=== PATIENT | female | born 1975 | race Caucasian/White ===

== ENCOUNTER 2023-03-19 13:27 | Outpatient (CLI) | payer OTHER, SELFPAY ==
--- NOTE | ~2023-03-19 | XR_ITS ---
EXAMINATION: XR fl inj shoulder LT - MR/CT DATE: 03/19/2023 14:38 INDICATION: Chronic left shoulder pain TECHNIQUE: A time-out was performed to verify the patient's name, date of , and procedure to b e performed. The procedure including the risks, benefits, and alternatives was discussed with the pat ient. Risks discussed included bleeding and infection. The patient understood the risks and agreed to proceed. The skin overlying the rotator cuff interval of the left glenohumeral joint was prepped an d draped in usual sterile fashion. Anesthetic was administered with 1% lidocaine subcutaneously. A 22 G needle was advanced under fluoroscopic guidance into the joint. Injection of 1 mL of Omnipaque 240 confirmed intra-articular position of the needle. Subsequently, injectate consisting of 12 mL of 2:1:1 mixture of sterile saline:Omnipaque 240:1% lidocaine mixed 200:1 with 529 mg/mL Multihance brenda olinium contrast was injected. Washout of contrast was seen confirming intra-articular administration . The needle was removed and the entry site was cleaned and dressed. There were no immediate complic ations. Fluoroscopy exposure time was 0.2 minutes. The total number of images was 6. FINDINGS: Real-time fluoroscopy demonstrates the needle and contrast in the left glenohumeral joint. IMPRESSION: 1. Successful left glenohumeral joint injection of dilute gadolinium contrast mixture for subsequent MRI arthrogram which will be dictated separately. Reviewed, dictated and finalized at location A. IMPRESSION: 1. Successful left glenohumeral joint injection of dilute gadolinium contrast m ixture for subsequent MRI arthrogram which will be dictated separately.
--- NOTE | ~2023-03-19 | MR_ITS ---
EXAMINATION: MR shoulder LT w con DATE: 03/19/2023 15:27 INDICATION: Chronic left shoulder pain TECHNIQUE: Magnetic resonance imaging (MRI) of the left shoulder was performed following intra-artic ular gadolinium contrast injection and without intravenous contrast. Details of the glenohumeral join t injection have been dictated separately. Sequences included axial T2-weighted FS FSE, axial T1-rosalia ghted FS FSE, coronal oblique T1-weighted FS FSE, coronal oblique T2-weighted FSE, sagittal T2-weight ed FS FSE, sagittal T1-weighted FSE, and ABER (abduction external rotation) T1-weighted FS FSE. COMPARISON: None. FINDINGS: Coracoacromial arch: The acromion undersurface is minimally curved in morphology (type I-II). The coracoacromial ligament is normal. Acromioclavicular joint is normal. Rotator cuff: The supraspinatus, infraspinatus and teres minor are normal. The subscapularis is normal. Normal rota tor cuff muscle bulk and signal. Biceps tendon, glenoid labrum and glenohumeral cartilage: Long head of the biceps tendon is intact. Glenoid labrum is normal. Glenohumeral cartilage is normal. Bones and other: Normal marrow signal with no edema, fracture or abnormal marrow replacing process. There are small am ount of fluid in the subacromial/subdeltoid bursa consistent with minimal bursitis. There is extrava sation of contrast from the deep subscapular recess with contrast tracking medially along the deep an d cephalad margins of the subscapularis muscle. There is thickening of the capsule at the axillary re cess which can be seen in the setting of adhesive capsulitis which is a clinical diagnosis. IMPRESSION: 1. Thickening of the capsule at the axillary recess which can be seen in the setting of adhesive caps ulitis which is a clinical diagnosis. 2. Minimal subacromial/subdeltoid bursitis. Reviewed, dictated and finalized at location A. IMPRESSION: 1. Thickening of the capsule at the axillary recess which can be seen in the se tting of adhesive capsulitis which is a clinical diagnosis. 2. Minimal subacromial/subdeltoid bursitis.
== END 2023-03-19 13:28 | disposition home or self-care (01) ==
PROVIDERS: Visit Provider Physician Assistant
DX: M25.512 Pain in left shoulder (principal); G89.29 Other chronic pain
CPT/HCPCS: 23350; 73222; A9577; Q9966